=== PATIENT | female | born 1965 | race African-American/Black ===

== ENCOUNTER → 2020-12-04 20:00 | Emergency (ER) | payer SELFPAY ==
[2013-11-11 09:30] VITALS: BP 122/76
[~2020-12-04 20:00] MED LIST: HYDR12.58 PO
== END | disposition left against medical advice (07) ==
LOC: ER 20:00
DX: R06.02 Shortness of breath (principal); Z53.21 Procedure and treatment not carried out due to patient leaving prior to being seen by health care provider